=== PATIENT | female | born 1995 | race Hispanic/Latino ===

== ENCOUNTER 2019-04-11 09:49 | Outpatient (CLI) | payer OTHER ==
--- NOTE | 2019-04-11 11:09 | ULT ---
EXAM: US OB Complete STANDARD PROVIDED CLINICAL HISTORY: anatomic survey COMPARISON: None FINDINGS: Single live intrauterine gestation is documented in cephalic presentation with heart rate of 138 bpm. The placenta is fundally and posteriorly located without evidence for previa. Cervical length appears adequate. anatomic survey demonstrates a normal appearance to the head, posterior fossa, lateral ventricles, four-chamber heart, stomach, kidneys, bladder, umbilical cord and cord insertion, spine, face and extremities. biometry: BPD 5.2 cm 21 weeks 6 days Head circumference 18.2 cm 20 weeks 5 days Abdominal circumference 15.9 cm 21 weeks 1 day Femur length 3.2 cm 19 weeks 6 days Estimated gestational age based on today's examination is 21 weeks 0 days. Estimated weight is 360 +/- 53 g. YAKOV is 11.1. IMPRESSION: Single live intrauterine gestation as described.
== END 2019-04-11 09:50 | disposition home or self-care (01) ==
LOC: BICULT 09:49
PROVIDERS: ATTEND Family Medicine
DX: Z34.82 Encounter for supervision of other normal pregnancy, second trimester (principal); Z3A.21 21 weeks gestation of pregnancy
CPT/HCPCS: 76805

== ENCOUNTER 2019-08-05 17:26 | Day surgery (SDC) | payer OTHER ==
[2019-08-05 17:57] VITALS: BMI 27.1
[2019-08-05] MEDS ORDERED: hydrALAZINE 20 MG/ML VIAL SLOW IVP PRN (18:48)
--- NOTE | 2019-08-05 19:17 | PDOC.FPROB ---
FMR OB H&P: HPI - History of Present Illness Chief Complaint: Vaginal pressure Indentification: 24 year old at 37.4 wks History of Present Illness: 24 year old at 37.4 wks presents with vaginal pressure since Thursday and loss of mucous plug. Patient denies contractions, dysuria, LoF, vaginal bleeding, or vaginal discharge. Patient endorses movement. Patient denies any significant problems during this . Primary Care Physician: Ricki FMR OB H&P: Current - Care : 2 Para: 1001 Gestational age: 37.4 wks FMR OB H&P: History - Past Medical History PMH: Denies - OB History OB History: 2015 - Surgical History Sx History: Denies - Social History Social History: Denies alcohol, tobacco, or drug use FMR OB H&P: Medications - Current Allergies/Adverse Reactions: Allergies Allergy/AdvReac Type Severity Reaction Status Date / Time No Known Allergies Allergy Verified 08/05/19 17:55 FMR OB H&P: ROS - Review of Systems General: denies: fever/chills ENT: denies: nasal congestion, rhinorrhea, sore throat Cardiovascular: denies: chest pain, palpitation, edema Respiratory: denies: cough, congestion, shortness of breath Gastrointestinal: denies: nausea, vomiting Genitourinary (Female): reports: vaginal pain, vaginal pressure. denies: dysuria, vaginal bleeding, contractions Musculoskeletal: denies: pain, stiffness Neurologic: denies: numbness, syncope Integumentary: denies: itching, rash FMR OB H&P: Vital Signs - Maternal Vital signs: BP 102/61 Pulse 101 O2 sat 100% RA Temp 98.2F - Heart Tones Baseline: 140 Variability: moderate Acceleration: present Deceleration: absent Category: category 1 [place] contractions every: None FMR OB H&P: Physical Exam - Physical Exam General: NAD, awake, alert and oriented HEENT: MMM, grossly normal vision, grossly normal hearing Heart: no murmurs/rubs/gallops, pulses present General: no respiratory distress Abdomen: soft, gravid, non-tender Musculoskeletal: pulses present, FROM in all four extremities Neurological: no tremor, no focal deficit Skin: no rash, capillary refill <2 seconds Lymphatic: no unusual bruising or bleeding, no purpura Psychiatric: intact recent and remote memory, good judgement and insight, normal mood and affect - Pelvic Exam SVE: /-2, posterior FMR OB H&P: A/P - Problem List (1) Term Status: Acute Code(s): Z34.90 - ENCNTR FOR SUPRVSN OF NORMAL , UNSP, UNSP TRIMESTER Disposition: Term - Cervical check /2, posterior - No contractions on monitor - Normal progression of - Labor precautions discussed - Routine PNC Dispo: D/c home. Labor precautions discussed. Discussion: Date/Time: 08/05/191902 This H&P was discussed with Dr. Saexna who agrees with the above documentation and plan. Signature: Rashida Beck, DO PGY-3
== END 2019-08-05 18:55 | disposition home or self-care (01) ==
LOC: L&D/OP 17:26
PROVIDERS: ATTEND Family Medicine
DX: O26.893 Other specified pregnancy related conditions, third trimester (principal); R10.2 Pelvic and perineal pain; Z3A.37 37 weeks gestation of pregnancy
CPT/HCPCS: 99282

== ENCOUNTER 2019-08-11 09:37 | Inpatient (IN) | payer MEDICAID, OTHER, SELFPAY ==
[2019-08-11] MEDS ORDERED: Ibuprofen 800 MG TAB PO PRN (10:28)
[2019-08-11] MEDS ORDERED: Promethazine HCl 25 MG/ML VIAL IM PRN ×2 (10:28→17:35)
[2019-08-11] MEDS ORDERED: Lidocaine 1% (PF) 30 ML VIAL SC PRN (10:28)
[2019-08-11] MEDS ORDERED: Ondansetron PF 4 MG/2 ML Vial IVP PRN ×2 (10:28→17:35)
[2019-08-11] MEDS ORDERED: Carboprost 250 MCG/ML AMP IM PRN (10:28)
[2019-08-11] MEDS ORDERED: hydrALAZINE 20 MG/ML VIAL SLOW IVP PRN (10:28)
[2019-08-11] MEDS ORDERED: Butorphanol Tartrate 1 MG/ML VIAL SLOW IVP PRN (10:28)
[2019-08-11] MEDS ORDERED: HYDROcodone/Acetaminophen 5/325 mg Tablet PO PRN (10:28)
[2019-08-11] MEDS ORDERED: Methylergonovine 0.2 MG/ML VIAL IM PRN (10:28)
[2019-08-11] MEDS ORDERED: Misoprostol 200 MCG TAB PR PRN (10:28)
[2019-08-11] MEDS ORDERED: Diphenoxylate HCl/Atropine Tablet PO PRN (10:28)
[2019-08-11] MEDS ORDERED: NS w/ Oxytocin 10 units 500 ML IV SCH ×2 (10:30)
[2019-08-11] MEDS: Lactated Ringer's 1,000 ML IV SCH (10:40)
[2019-08-11 11:00] VITALS: BMI 26.1
[2019-08-11 11:11] LABS: Hemoglobin 9.4 g/dL (12.0-16.0); Mean Corpuscular Hemoglobin 29.4 pg (27.0-31.0); Mean Corpuscular Volume 86.6 fL (78.0-98.0); Mean Platelet Volume 8.1 fL (7.4-10.4); Platelet Count 292 thou/uL (130-400); RBC Distribution Width 13.2 % (11.5-14.5); Red Blood Cell (RBC) Count 3.19 mill/uL (4.20-5.40); White Blood Cell (WBC) Count 10.2 thou/uL (4.8-10.8)
[2019-08-11 11:47] LABS: Syphilis Antibody Nonreactive (Nonreactive); Syphilis Antibody Index 0.06 S/CO (<1.00 Non-Reactive)
[2019-08-11 11:49] LABS: HBSAg Index 0.23 S/CO (0-0.99); Hep B Surf Ag Non-Reactive S/CO (NonReactive)
[2019-08-11] MEDS ORDERED: Bupivacaine/Epinephrine 0.25% 30 ML VIAL ONE (13:46)
[2019-08-11] MEDS ORDERED: Fentanyl 4 mcg/Bup 0.1% Cadd 100 ML ONE (16:37)
[2019-08-11] MEDS ORDERED: Naloxone HCl 0.4 mg/ml Vial IVP PRN ×2 (17:35)
[2019-08-11] MEDS ORDERED: ePHEDrine/0.9% NaCl/PF SYRINGE 50 mg/10 ml SLOW IVP PRN (17:35)
[2019-08-11] MEDS ORDERED: Lactated Ringer's 500 ML IV PRN (17:35)
[2019-08-11] MEDS ORDERED: Acetaminophen 325 MG TAB PO PRN (17:35)
[2019-08-11] MEDS ORDERED: diphenhydrAMINE 50 MG/ML VIAL IVP PRN (17:35)
[2019-08-11] MEDS ORDERED: Fentanyl 4 mcg/Bupivacaine 0.1% Cassette 100 ML EPIDURAL SCH (17:45)
[2019-08-11] MEDS ORDERED: Communication Order-Pharmacy FS SCH (17:45)
[2019-08-11] MEDS ORDERED: Methylergonovine 0.2 MG/ML VIAL ONE (23:47)
[2019-08-12 00:01] LABS: Actual Bicarbonate (HCO3a) 21.7 mEq/L (22-28)
[2019-08-12 00:03] LABS: Actual Bicarbonate (HCO3v) 23 mEq/L (22-28); Base Excess -2.1 mEq/L (-2.0 to +3.0); pH (Cord, venous) 7.36 (7.32-7.43)
[2019-08-12] MEDS ORDERED: Carboprost 250 MCG/ML AMP ONE (00:05)
[2019-08-12] MEDS ORDERED: Fentanyl 4 mcg/Bup 0.1% Cadd 0 ML ONE (00:44)
[2019-08-12] MEDS: NS / Oxytocin 40 units/1000ml 1,000 ML IV PRN ×2 (00:48→00:52)
[2019-08-12] MEDS: Lactated Ringer's 1,000 ML IV SCH ×3 (00:49→16:45)
[2019-08-12] MEDS: Tranexamic Acid 1,000 MG/10 ML VIAL ONE (00:54)
[2019-08-12] MEDS ORDERED: Azithromycin 500 MG in Sodium Chloride 0.9% 250 ML 250 ML IVPB SCH (01:00)
[2019-08-12] MEDS: CEFAZOLIN 2 GM in Premix Bag 1 BAG IVPB SCH ×2 (01:24→09:03)
--- NOTE | 2019-08-12 01:45 | DN ---
DATE OF PROCEDURE: 08/11/2019 PROCEDURE PERFORMED: Vacuum-assisted vaginal delivery. DESCRIPTION OF EVENTS: I was present for the delivery of this 24-year-old female, G2, P1, now P2 of a viable male infant on 08/11/2019. This was a vacuum-assisted vaginal delivery for poor maternal pushing effort and heart tones. The vacuum was applied at +3 station. Delivery was accomplished with over the span of 2 contractions with one pop-off which was due to a poor seal and low pressure on the vacuum. Max pressure of 50 mmHg. Infant delivered in OA presentation over a small second-degree perineal laceration. No nuchal cord was encountered. The remainder of the delivered uneventfully. Cord was clamped x2 and a vigorous male was placed on the maternal chest. Oxytocin infusion was begun. Uterine massage and traction on the cord led to the cord tearing. After another 5 minutes of uterine massage and heavier bleeding, manual removal of the placenta, followed by manual exploration of the inside of the uterus was performed. The uterus was noted to be extremely atonic and Methergine, Hemabate, and Cytotec were given almost simultaneously. TXA was also given. These along with bimanual uterine massage did not improve the atony or the bleeding. A Bakri balloon was placed manually and inflated to 480 mL. Ultrasound placed and was confirmed by Dr. Ventura who came in to assist. The vaginal pack was used to stabilize the Bakri balloon and it was taped in place. While this was going on, a massive transfusion protocol was initiated and 4 units of PRBCs, 2 units of FFP, and 2 units of platelets were ordered and given. The perineal laceration was repaired within the usual fashion with a suture of 2-0 Vicryl. EBL was 20-30 mL. The infant was taken to the nursery in stable condition. The patient was maintained in Labor and delivery with good urine output, normal vital signs, and minimal bleeding after insertion of the Bakri balloon. IV antibiotics were initiated for prophylaxis. Job ID: [id number]
[2019-08-12] MEDS: metroNIDAZOLE 500 MG in Premix Bag 1 BAG IVPB SCH ×2 (02:47→11:02)
[2019-08-12] MEDS ORDERED: Fentanyl 4 mcg/Bup 0.1% Cadd 100 ML ONE (12:47)
[2019-08-12] MEDS ORDERED: Adacel (T-DAP) 0.5 ML SYRINGE IM ONE (13:19)
[2019-08-12] MEDS ORDERED: Bisacodyl 10 MG SUPP PR PRN (13:19)
[2019-08-12] MEDS ORDERED: hydrALAZINE 20 MG/ML VIAL SLOW IVP PRN (13:19)
[2019-08-12] MEDS ORDERED: Lanolin Ointment 7 GM TUBE TOP PRN (13:19)
[2019-08-12] MEDS ORDERED: Milk Of Magnesia 30 ML UDCUP PO PRN (13:19)
[2019-08-12] MEDS ORDERED: Benzocaine-Menthol 82.5 ML CAN TOP PRN (13:19)
[2019-08-12] MEDS ORDERED: Ondansetron PF 4 MG/2 ML Vial IVP PRN (13:19)
[2019-08-12] MEDS ORDERED: NS / Oxytocin 40 units/1000ml 1,000 ML IV SCH (13:19)
[2019-08-12] MEDS ORDERED: diphenhydrAMINE 25 MG CAP PO PRN (13:19)
[2019-08-12 13:49] LABS: Hemoglobin 10.8 g/dL (12.0-16.0); Mean Corpuscular HGB CONC 34.1 g/dL (32.0-36.0); Mean Corpuscular Hemoglobin 29.7 pg (27.0-31.0); Mean Corpuscular Volume 87.3 fL (78.0-98.0); Mean Platelet Volume 8.1 fL (7.4-10.4); Platelet Count 212 thou/uL (130-400); RBC Distribution Width 14.5 % (11.5-14.5); Red Blood Cell (RBC) Count 3.63 mill/uL (4.20-5.40); White Blood Cell (WBC) Count 20.9 thou/uL (4.8-10.8)
[2019-08-12] MEDS: Prenatal Vitamin 1 TAB PO SCH (16:40)
[2019-08-12] MEDS: Ferrous Sulfate 325 MG TAB PO SCH ×2 (16:40→17:03)
[2019-08-12] MEDS: Docusate Calcium (SURFAK) 240 MG CAP PO SCH ×2 (16:40→22:08)
[2019-08-12] MEDS: Ibuprofen 800 MG TAB PO SCH (16:41)
[2019-08-12] MEDS: metroNIDAZOLE 500 MG TAB PO SCH (22:07)
[2019-08-12] MEDS: Cephalexin 250 MG CAP PO SCH (22:08)
[2019-08-12] MEDS: HYDROcodone/Acetaminophen 5/325 mg Tablet PO PRN (22:08)
[2019-08-13] MEDS: HYDROcodone/Acetaminophen 5/325 mg Tablet PO PRN ×3 (03:50→23:09)
[2019-08-13] MEDS: Ibuprofen 800 MG TAB PO SCH ×4 (03:51→20:48)
[2019-08-13 06:10] LABS: Hemoglobin 9.5 g/dL (12.0-16.0); Mean Corpuscular HGB CONC 33.8 g/dL (32.0-36.0); Mean Corpuscular Hemoglobin 29.9 pg (27.0-31.0); Mean Corpuscular Volume 88.5 fL (78.0-98.0); Mean Platelet Volume 8.1 fL (7.4-10.4); Platelet Count 204 thou/uL (130-400); RBC Distribution Width 14.7 % (11.5-14.5); Red Blood Cell (RBC) Count 3.17 mill/uL (4.20-5.40); White Blood Cell (WBC) Count 17.3 thou/uL (4.8-10.8)
--- NOTE | 2019-08-13 07:02 | PDOC.PP ---
Post Progress Note Post Day #: 1 Subjective: 24 yo F pp day 1. Pt had retained products and pph requiring transfusion and bakri balloon. Scant bleeding since removal and pt reports she is feeling well. All PP milestones met. Pain well controlled. PO intake tolerated: yes Flatus: yes Ambulation: yes Vital Signs (12 hours) Temp Pulse Resp BP Pulse Ox 08/13/19 00:00 98.6 F 80 17 89/52 L 08/12/19 19:22 98.6 F 68 16 94/50 L 96 Weight Weight 71.214 kg - Physical Examination General: NAD Cardiovascular: no m/r/g Respiratory: non-labored breathing Abdominal: lochia, no distention, appropriately TTP Extremities: negative homans (B) Skin: no rash Neurological: no gross focal deficits Psychiatric: normal affect Result Diagrams: 08/13/19 05:27 Additional Labs: Post Labs Blood Type O POSITIVE 08/11/19 11:13 Hep Bs Antigen Non-Reactive S/CO (NonReactive) 08/11/19 10:46 (1) Atonic hemorrhage Code(s): O72.1 - OTHER IMMEDIATE HEMORRHAGE Status: Acute (2) Normal spontaneous vaginal delivery Code(s): O80 - ENCOUNTER FOR FULL-TERM UNCOMPLICATED DELIVERY Status: Acute (3) Retained placenta with hemorrhage Code(s): O72.0 - THIRD-STAGE HEMORRHAGE Status: Acute - Assessment/Plan 1) oo day 1 - countinue routine pp care - all pp milestones met 2) PPH - lochia appropriate currently and vss - repeat am hemagram tomorrow - current hemagram appropriate and no tachycardia present Dispo: Stable, cont routine pp care and repeat am hemagram unless clinical picture changes, then as indicated. Monitor vs throughout day and monitor for s/ s of continued blood loss. Addendum - Attending - Attending Attestation Date/Time: 08/13/19 0605 I personally evaluated the patient and discussed the management with Dr. Lala. I agree with the History, Examination, Assessment and Plan documented above.
[2019-08-13] MEDS: Ferrous Sulfate 325 MG TAB PO SCH ×2 (09:58→20:48)
[2019-08-13] MEDS: Cephalexin 250 MG CAP PO SCH ×3 (09:58→23:10)
[2019-08-13] MEDS: Prenatal Vitamin 1 TAB PO SCH (09:59)
[2019-08-13] MEDS: Docusate Calcium (SURFAK) 240 MG CAP PO SCH ×2 (09:59→20:48)
[2019-08-13] MEDS: metroNIDAZOLE 500 MG TAB PO SCH ×3 (09:59→20:48)
--- NOTE | 2019-08-14 05:52 | PDOC.PP ---
Post Progress Note Post Day #: 2 Subjective: Patient doing well. No significant overnight events. Patient ambulating without difficulty. Patient tolerating PO. Patient denies dizziness, shortness of breath , chest pain, or weakness. She states she is ready to go home. PO intake tolerated: yes Flatus: yes Ambulation: yes Vital Signs (12 hours) Temp Pulse Resp BP Pulse Ox 08/13/19 20:00 98.3 F 71 16 92/57 L 99 Weight Weight 71.214 kg - Physical Examination General: NAD Cardiovascular: no m/r/g, RRR Respiratory: clear to auscultation bilaterally, non-labored breathing Abdominal: + bowel sounds, lochia (less than period), no distention, appropriately TTP Fundus firm & at: below umbilicus Skin: no rash Neurological: no gross focal deficits Psychiatric: A&Ox3, normal affect Result Diagrams: 08/13/19 05:27 Additional Labs: Post Labs Blood Type O POSITIVE 08/11/19 11:13 Hep Bs Antigen Non-Reactive S/CO (NonReactive) 08/11/19 10:46 (1) Atonic hemorrhage Code(s): O72.1 - OTHER IMMEDIATE HEMORRHAGE Status: Acute (2) Normal spontaneous vaginal delivery Code(s): O80 - ENCOUNTER FOR FULL-TERM UNCOMPLICATED DELIVERY Status: Acute - Assessment/Plan Routine PP care - s/p , PP day #2 - Meeting PP milestones - Rh positive, rubella immune - Lochia minimal PPH due to uterine atony - Lochia less than period - AM CBC pending; patient asymptomatic and VSS Dispo: Stable. D/c patient home today.
[2019-08-14] MEDS: Ibuprofen 800 MG TAB PO SCH (06:31)
[2019-08-14 06:45] LABS: Hemoglobin 10.6 g/dL (12.0-16.0); Mean Corpuscular HGB CONC 32.8 g/dL (32.0-36.0); Mean Corpuscular Hemoglobin 29.2 pg (27.0-31.0); Mean Corpuscular Volume 89.2 fL (78.0-98.0); Platelet Count 242 thou/uL (130-400); RBC Distribution Width 14.6 % (11.5-14.5); Red Blood Cell (RBC) Count 3.64 mill/uL (4.20-5.40); White Blood Cell (WBC) Count 14.2 thou/uL (4.8-10.8)
[2019-08-14] MEDS: Prenatal Vitamin 1 TAB PO SCH (08:26)
[2019-08-14] MEDS: metroNIDAZOLE 500 MG TAB PO SCH (08:26)
[2019-08-14] MEDS: Docusate Calcium (SURFAK) 240 MG CAP PO SCH (08:26)
[2019-08-14] MEDS: Ferrous Sulfate 325 MG TAB PO SCH (08:26)
[2019-08-14] MEDS: Cephalexin 250 MG CAP PO SCH (08:27)
[2019-08-14 12:01] VITALS: BP 104/58; TEMP 98.2
== END 2019-08-14 11:56 | disposition home or self-care (01) | DRG 806 ==
LOC: L&D/OP 09:37 → L&D 10:32 → 3SW 08-12 16:04
PROVIDERS: ADMIT Family Medicine; ATTEND Family Medicine
PROC: 10D07Z6 Extraction of Products of Conception, Vacuum, Via Natural or Artificial Opening (ICD-10-PCS; principal; 2019-08-11)
PROC: 0KQM0ZZ Repair Perineum Muscle, Open Approach (ICD-10-PCS; 2019-08-11)
PROC: 3E033VJ Introduction of Other Hormone into Peripheral Vein, Percutaneous Approach (ICD-10-PCS; 2019-08-11)
PROC: 3E0P7VZ Introduction of Hormone into Female Reproductive, Via Natural or Artificial Opening (ICD-10-PCS; 2019-08-11)
PROC: 0U7C7ZZ Dilation of Cervix, Via Natural or Artificial Opening (ICD-10-PCS; 2019-08-11)
PROC: 30233L1 Transfusion of Nonautologous Fresh Plasma into Peripheral Vein, Percutaneous Approach (ICD-10-PCS; 2019-08-12)
PROC: 30233N1 Transfusion of Nonautologous Red Blood Cells into Peripheral Vein, Percutaneous Approach (ICD-10-PCS; 2019-08-12)
PROC: 30233R1 Transfusion of Nonautologous Platelets into Peripheral Vein, Percutaneous Approach (ICD-10-PCS; 2019-08-12)
PROC: 30233K1 Transfusion of Nonautologous Frozen Plasma into Peripheral Vein, Percutaneous Approach (ICD-10-PCS; 2019-08-12)
DX: O76 Abnormality in fetal heart rate and rhythm complicating labor and delivery (principal); O72.1 Other immediate postpartum hemorrhage; Z37.0 Single live birth; O72.0 Third-stage hemorrhage; O70.1 Second degree perineal laceration during delivery; Z3A.37 37 weeks gestation of pregnancy
CPT/HCPCS: 36415; 36430; 51702; 82805; 85027; 86780; 86850; 86900; 86901; 87340; 99285; J0456; J0690; J2210; J2405; J2590; J3490; J7050; P9016; P9035; P9059